=== PATIENT | female | born 2000 | race Caucasian/White ===

== ENCOUNTER 2023-07-05 12:53 | Observation (INO) | payer BC ==
[2023-07-05] MEDS ORDERED: Bupivacaine 0.25% HCL 30 ML VIAL ONE ×2 (13:51→17:36)
[2023-07-05] MEDS ORDERED: EPINEPHrine 1 MG/ML VIAL ONE ×2 (13:51→17:36)
[2023-07-05] MEDS ORDERED: fentaNYL 50 mcg/mL 1 mL Vial ONE (14:35)
[2023-07-05] MEDS ORDERED: Acetaminophen 500 MG TAB ONE (16:07)
[2023-07-05] MEDS ORDERED: Piperacillin/Tazobactam 3.375 GM VIAL ONE (16:07)
[2023-07-05] MEDS ORDERED: Sodium Chloride 0.9% 100 ML ONE (16:07)
[2023-07-05] MEDS ORDERED: Scopolamine 1 mg/72 hour Patch ONE (17:30)
[2023-07-05] MEDS ORDERED: SUCCINYLCHOLINE/SOD CL,ISO/PF 200 MG/10 ML SYRINGE FS ONE (17:58)
[2023-07-05] MEDS ORDERED: Rocuronium Bromide 10 MG/ML (10ML VIAL) ONE (17:58)
[2023-07-05] MEDS ORDERED: Lidocaine 2% PF 5 ML VIAL ONE (17:58)
[2023-07-05] MEDS ORDERED: fentaNYL PF 100 MCG/2 ML SYRINGE ONE (17:59)
[2023-07-05] MEDS ORDERED: Lidocaine 1% PF 5 ML VIAL ONE (17:59)
[2023-07-05] MEDS ORDERED: PROPOFOL 20 ML ONE (17:59)
[2023-07-05] MEDS ORDERED: Midazolam HCl 2 mg/2 ml Vial ONE (18:03)
[2023-07-05] MEDS ORDERED: PHENYLEPHRINE-NS 100 MCG/ML 10 ML SYRINGE ONE (18:14)
[2023-07-05] MEDS ORDERED: Ondansetron PF 4 MG/2 ML Vial ONE (18:27)
[2023-07-05] MEDS ORDERED: Dexamethasone 4 mg/ml Vial ONE (18:27)
[2023-07-05] MEDS ORDERED: SUGAMMADEX SODIUM 200 MG/2 ML VIAL ONE (18:52)
[2023-07-05] MEDS ORDERED: Morphine 2 MG/ML VIAL SLOW IVP PRN (19:26)
[2023-07-05] MEDS ORDERED: traMADol HCl 50 MG TAB PO PRN (19:26)
[2023-07-05] MEDS ORDERED: Acetaminophen 325 MG TAB PO PRN (19:26)
[2023-07-05] MEDS ORDERED: TETANUS, DIPHTHERIA TOX,ADULT (TDVAX) 0.5 ML VIAL IM ONE (19:26)
[2023-07-05] MEDS: Piperacillin/Tazobactam 3.375 GM in Sodium Chloride 0.9% 100 ML IVPB SCH (22:15)
[2023-07-06] MEDS: D5 1/2 NS w/20 mEq KCL 1,000 ML IV SCH ×2 (01:11)
[2023-07-06] MEDS: Piperacillin/Tazobactam 3.375 GM in Sodium Chloride 0.9% 100 ML IVPB SCH (05:08)
[2023-07-06 05:53] VITALS: BMI 37.9
[2023-07-06 06:44] LABS: #Monocytes 1.1 thou/uL (0.11-0.59); %Basophils 0.2 % (0.0-1.0); %Lymphocytes 10.1 % (28.0-48.0); %Monocytes 6.9 % (0.0-4.0); %Neutrophils 82.6 % (31.0-61.0); Hematocrit 37.8 % (36.0-47.0); Mean Corpuscular HGB CONC 34.4 g/dL (32.0-36.0); Mean Corpuscular Hemoglobin 30.3 pg (25.0-35.0); Mean Corpuscular Volume 88.1 fl (78.0-98.0); Mean Platelet Volume 10.1 fL (7.4-10.4); Platelet Count 244 10x3/uL (130-400); RBC Distribution Width 12.5 % (11.5-14.5); Red Blood Cell (RBC) Count 4.29 mill/uL (4.00-5.20); White Blood Cell (WBC) Count 15.7 10x3/uL (4.8-10.8)
[2023-07-06 07:08] LABS: Anion Gap 12 mmol/L (10-20); BUN (Urea Nitrogen) 8 mg/dL (7.0-18.7); Calc. Creatinine Clearance 162 mL/min (70-130); Calcium 8.3 mg/dL (7.8-10.44); Carbon Dioxide 21 mmol/L (22-29); Chloride 106 mmol/L (98-107); Estimated GFR 101; Glucose 105 mg/dL (70-105); Potassium 3.7 mmol/L (3.5-5.1); Sodium 135 mmol/L (136-145)
[2023-07-06] MEDS ORDERED: Ibuprofen 600 MG TAB PO PRN (07:35)
[2023-07-06 08:04] VITALS: BP 104/74; TEMP 97.7
[2023-07-06] MEDS ORDERED: Amoxicillin/Potassium Clav 875 MG TAB PO SCH (21:00)
== END 2023-07-06 12:15 | disposition home or self-care (01) ==
LOC: SDC 12:53 → SURG A 19:08
PROVIDERS: ADMIT Student in an Organized Health Care Education/Training Program; ATTEND Student in an Organized Health Care Education/Training Program
PROC: 0DTJ4ZZ Resection of Appendix, Percutaneous Endoscopic Approach (ICD-10-PCS; principal; 2023-07-06)
DX: K35.32 Acute appendicitis with perforation, localized peritonitis, and gangrene, without abscess (principal)
CPT/HCPCS: 36415; 80048; 85025; 88304; 90714; A4314; A4649; C1776; C1889; J0171; J0665; J1100; J2001; J2250; J2405; J2543; J2704; J3010; J3480; J3490

== ENCOUNTER 2023-07-08 11:50 | Inpatient (IN) | payer BC ==
[2023-07-08 13:00] LABS: #Basophils 0.1 thou/uL (0.0-0.2); #Eosinphils 0.2 thou/uL (0.0-0.7); #Neutrophils 11.2 thou/uL (1.40-6.50); %Basophils 0.6 % (0.0-1.0); %Eosinophils 1.6 % (0.0-10.0); %Lymphocytes 11.2 % (21.0-51.0); %Monocytes 7.1 % (0.0-10.0); %Neutrophils 78.9 % (42.0-75.0); Hematocrit 40.1 % (36.0-47.0); Hemoglobin 13.8 g/dL (12.0-16.0); Mean Corpuscular HGB CONC 34.4 g/dL (32.0-36.0); Mean Corpuscular Hemoglobin 29.7 pg (27.0-31.0); Mean Corpuscular Volume 86.4 fl (78.0-98.0); Mean Platelet Volume 10.3 fL (7.4-10.4); Platelet Count 299 10x3/uL (130-400); RBC Distribution Width 12.4 % (11.5-14.5); Red Blood Cell (RBC) Count 4.64 mill/uL (4.20-5.40); White Blood Cell (WBC) Count 14.2 10x3/uL (4.8-10.8)
[2023-07-08 13:26] LABS: ALT (SGPT) 10 U/L (8-55); AST (SGOT) 17 U/L (5-34); Albumin 3.8 g/dL (3.5-5.0); Alkaline Phosphatase 83 U/L (40-110); Anion Gap 12 mmol/L (10-20); BUN (Urea Nitrogen) 8 mg/dL (7.0-18.7); Bilirubin, Total 0.8 mg/dL (0.2-1.2); Calc. Creatinine Clearance 0 mL/min (70-130); Calcium 9.5 mg/dL (7.8-10.44); Carbon Dioxide 28 mmol/L (22-29); Chloride 100 mmol/L (98-107); Estimated GFR 120; Globulin 3.6 g/dL (2.4-3.5); Glucose 87 mg/dL (70-105); Potassium 3.3 mmol/L (3.5-5.1); Protein, Total 7.4 g/dL (6.0-8.3); Sodium 137 mmol/L (136-145)
[2023-07-08 13:57] LABS: BHCG - Serum Negative (NEGATIVE); Pregs Control Background? CLEAR/WHITE (CLR/WHITE); Pregs Control Bar Appear? YES (CONTROL BAR)
[2023-07-08 14:09] LABS: Troponin I Less than 0.010 ng/mL (< 0.028)
[2023-07-08] MEDS ORDERED: Iopamidol-370 76% 500 ML MDV (1 ML CHARGE) ONE (15:16)
[2023-07-08] MEDS ORDERED: Sodium Chloride 0.9% 100 ML ONE (15:19)
[2023-07-08] MEDS ORDERED: Piperacillin/Tazobactam 4.5 GM VIAL ONE (15:19)
[2023-07-08] MEDS ORDERED: Ondansetron PF 4 MG/2 ML Vial IVP PRN (15:29)
[2023-07-08 16:26] LABS: SARS-CoV-2 NAA Rapid Test Not Detected (NotDetected)
[2023-07-08] MEDS: traMADol HCl 50 MG TAB PO PRN (18:21)
[2023-07-08] MEDS: Sodium Chloride 0.9% 1,000 ML IV SCH (18:24)
[2023-07-08] MEDS: Ondansetron ODT 4 MG TAB PO PRN (19:18)
[2023-07-08] MEDS: Piperacillin/Tazobactam 3.375 GM in Sodium Chloride 0.9% 100 ML IVPB SCH (20:05)
[2023-07-08] MEDS: Ibuprofen 600 MG TAB PO SCH (20:06)
[2023-07-08] MEDS: Acetaminophen 500 MG TAB PO SCH (20:06)
[2023-07-08] MEDS: Ketorolac Tromethamine 30 MG (1 mL) VIAL IVP SCH (21:12)
[2023-07-09 05:43] LABS: #Basophils 0.1 thou/uL (0.0-0.2); #Eosinphils 0.3 thou/uL (0.0-0.7); #Monocytes 1.1 thou/uL (0.11-0.59); #Neutrophils 8.6 thou/uL (1.40-6.50); %Basophils 0.5 % (0.0-1.0); %Eosinophils 2.6 % (0.0-10.0); %Lymphocytes 15.9 % (21.0-51.0); %Monocytes 8.9 % (0.0-10.0); %Neutrophils 71.4 % (42.0-75.0); Hematocrit 33.5 % (36.0-47.0); Hemoglobin 11.5 g/dL (12.0-16.0); Mean Corpuscular HGB CONC 34.3 g/dL (32.0-36.0); Mean Corpuscular Hemoglobin 30.1 pg (27.0-31.0); Mean Corpuscular Volume 87.7 fl (78.0-98.0); Mean Platelet Volume 9.9 fL (7.4-10.4); Platelet Count 270 10x3/uL (130-400); RBC Distribution Width 12.7 % (11.5-14.5); Red Blood Cell (RBC) Count 3.82 mill/uL (4.20-5.40); White Blood Cell (WBC) Count 12.1 10x3/uL (4.8-10.8)
[2023-07-09 08:30] VITALS: BP 100/66; TEMP 97.9
== END 2023-07-09 12:45 | disposition home or self-care (01) | DRG 856 ==
LOC: ERS 11:50 → MSONC 15:29
PROVIDERS: ADMIT Surgery; ATTEND Surgery
PROC: 0DTJ4ZZ Resection of Appendix, Percutaneous Endoscopic Approach (ICD-10-PCS; principal; 2023-07-06)
DX: T81.43XA Infection following a procedure, organ and space surgical site, initial encounter (principal); K35.32 Acute appendicitis with perforation, localized peritonitis, and gangrene, without abscess; E66.9 Obesity, unspecified; Z90.49 Acquired absence of other specified parts of digestive tract; Z79.899 Other long term (current) drug therapy; Z11.52 Encounter for screening for COVID-19
CPT/HCPCS: 36415; 74177; 80048; 80053; 83605; 84484; 84703; 85025; 87040; 88304; 90714; 96365; A4314; A4649; C1776; C1889; J0171; J0665; J1100; J1885; J2001; J2250; J2405; J2543; J2704; J3010; J3480; J3490; J7050; Q0162; Q9967